=== PATIENT | male | born 1980 | race Caucasian/White ===

== ENCOUNTER 2016-04-14 22:10 | Emergency (ER) | payer OTHER ==
[~2016-04-14] VITALS: Ht 182.9 cm; Wt 100.0 kg
[~2016-04-14 22:10] MED LIST: IBUP800T23 PO; PERC10TA27 PO; TAMS0.4C67 PO
[2016-04-14 22:13] VITALS: BP 168/89; PULSE 100; RESP 16; TEMP 97.5; O2SAT 100
[2016-04-14] MEDS ORDERED: oxyCODONE/ACETAMINOPHEN 5 MG/325 MG TAB PO ONE (22:45)
[2016-04-14] MEDS ORDERED: ONDANSETRON ODT 4 MG TAB PO ONE (22:45)
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
[2016-04-15] MEDS ORDERED: ONDANSETRON ODT 4 MG TAB PO ONE (00:15)
[2016-04-15] MEDS ORDERED: SILV1CRE80 TOPICAL (00:17)
[2016-04-15] MEDS ORDERED: ZOFR4TAB PO (00:17)
[2016-04-15] MEDS ORDERED: HYDR-3533 PO (00:17)
[2016-04-15] MEDS ORDERED: TETANUS/DIPHTHERIA TOXOID ADULT 0.5 ML VIAL IM ONE (00:30)
[2016-04-15] MEDS ORDERED: SILVER SULFADIAZINE 1% CR 50 GM JAR TOPICAL ONE (00:30)
== END 2016-04-15 01:15 | disposition home or self-care (01) ==
LOC: NEPB 22:10
DX: T23.262A Burn of second degree of back of left hand, initial encounter (principal); Z23 Encounter for immunization; X08.8XXA Exposure to other specified smoke, fire and flames, initial encounter; Y99.8 Other external cause status; W39.XXXA Discharge of firework, initial encounter
CPT/HCPCS: 16000; 90471; 90714